=== PATIENT | male | born 1960 | race Caucasian/White ===

== ENCOUNTER 2018-12-09 07:41 | Outpatient (CLI) | payer BC ==
[2016-03-10 10:01] VITALS: BP 107/54
[2018-12-09 08:36] LABS: eGFR (Non-African) > 60
== END 2018-12-09 07:50 ==
LOC: LAB 07:41
PROVIDERS: ATTEND Family Medicine
DX: E78.00 Pure hypercholesterolemia, unspecified (principal)
CPT/HCPCS: 36415; 80053; 80061